=== PATIENT | female | born 1955 | race Hispanic/Latino ===

== ENCOUNTER → 2018-11-01 | Outpatient (REF) | payer MEDICARE, OTHER ==
[~2018-11-01] MED LIST: ALENDRONATE70 MG PO; LEVOTHYROXIN75 MC1 PO; METFORMIN500 M1 PO
[2018-11-01 10:57] LABS: CREATININE 0.4 mg/dL (0.5-1.0)
== END | disposition home or self-care (01) ==
LOC: CT 10:19
PROVIDERS: ATTEND Physician Assistant Medical
DX: R10.9 Unspecified abdominal pain (principal); R16.0 Hepatomegaly, not elsewhere classified; R94.5 Abnormal results of liver function studies
CPT/HCPCS: Q9967